=== PATIENT | male | born 1960 | race Caucasian/White ===

== ENCOUNTER 2017-02-10 18:47 | Emergency (ER) | payer OTHER, MEDICAID ==
[2017-02-10 19:00] VITALS: TEMP 97.9
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
[2017-02-10] MEDS ORDERED: OXYCODONE/APAP 5/325MG PREPACK#4 BTL TAKEHOME ONE ×2 (20:04→20:07)
[2017-02-10] MEDS ORDERED: LIDOCAINE 2% VISCOUS 15 ML UDCUP ONE (20:14)
[2017-02-10 21:01] VITALS: O2SAT 96
[2017-02-10 21:02] VITALS: BP 132/91; PULSE 72; RESP 16
== END 2017-02-10 21:06 | disposition home or self-care (01) ==
LOC: EDUNIT#
DX: S42.032A Displaced fracture of lateral end of left clavicle, initial encounter for closed fracture (principal); S70.212A Abrasion, left hip, initial encounter; S80.812A Abrasion, left lower leg, initial encounter; V13.4XXA Pedal cycle driver injured in collision with car, pick-up truck or van in traffic accident, initial encounter; Y92.410 Unspecified street and highway as the place of occurrence of the external cause; Y93.55 Activity, bike riding

== ENCOUNTER 2017-02-13 11:28 | Day surgery (SDC) | payer OTHER, MEDICAID ==
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
--- NOTE | 2017-02-13 07:55 | POSTOPPROG ---
Post Op Note Date of Operation: 02/13/17 Surgeon: Idris Traylor Pre-op Diagnosis: L clavicle fracture Post-op Diagnosis: same Procedure: ORIF L clavicle fracture Inf/Abcess present in the surg proc area at time of surgery?: No EBL: Minimal Complications: none
[2017-02-13] MEDS ORDERED: ceFAZolin 2 GM/DEXTROSE 100 ML IV ONE (11:43)
[2017-02-13 11:57] VITALS: PULSE 66
[2017-02-13] MEDS ORDERED: LR 1,000 ML IV ONE (11:58)
[2017-02-13] MEDS ORDERED: BUPIVACAINE/EPI 0.5% 30 ML SDV ONE (12:06)
[2017-02-13] MEDS ORDERED: MIDAZOLAM 2 MG/2 ML VIAL IVP ONE (12:10)
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
[2017-02-13] MEDS ORDERED: LIDOCAINE 2% 5 ML SDV ONE (12:20)
[2017-02-13] MEDS ORDERED: PROPOFOL 200 MG/20 ML VIAL ONE (12:21)
[2017-02-13] MEDS ORDERED: fentaNYL 100 MCG/2 ML INJ ONE ×2 (12:21→13:01)
[2017-02-13] MEDS ORDERED: HYDROCODONE/APAP 5/325 TAB PO PRN (13:56)
[2017-02-13] MEDS ORDERED: HYDROmorphONE/DILAUDID 1 MG/ML SYR IVP PRN (13:56)
[2017-02-13] MEDS ORDERED: ACETAMINOPHEN 500 MG TAB PO PRN (13:56)
[2017-02-13] MEDS ORDERED: OXYCODONE/APAP 5/325 TAB PO PRN (13:56)
[2017-02-13] MEDS ORDERED: NALOXONE HCL 0.4 MG/ML INJ IVP PRN (13:56)
[2017-02-13] MEDS ORDERED: ONDANSETRON 4 MG/2 ML VIAL IVP PRN (13:56)
[2017-02-13] MEDS ORDERED: fentaNYL 100 MCG/2 ML INJ IVP PRN (13:56)
--- NOTE | 2017-02-13 14:28 | POSTANESTH ---
Post Anesthetic Evaluation Cardiovascular Status: Normal, Stable Respiratory Status: Normal, Stable Level of Consciousness/Mental Status: Can Participate in Eval, Mildly Sleepy, Arousable Pain Control: Adequate, Prn Tx Ordered Nausea/Vomiting Control: Adequate, Prn Tx Ordered Complications Possibly Related to Anesthesia: None Noted
[2017-02-13 14:38] VITALS: TEMP 97.7
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
[2017-02-13 16:36] VITALS: BP 118/85; RESP 7; O2SAT 91
== END 2017-02-13 16:27 | disposition home or self-care (01) ==
LOC: FSGY 11:28
PROVIDERS: ATTEND Orthopaedic Surgery Foot and Ankle Surgery
PROC: 0PSB04Z Reposition Left Clavicle with Internal Fixation Device, Open Approach (ICD-10-PCS; principal; 2017-02-13 13:00)
DX: S42.002A Fracture of unspecified part of left clavicle, initial encounter for closed fracture (principal); V13.4XXA Pedal cycle driver injured in collision with car, pick-up truck or van in traffic accident, initial encounter; Y92.410 Unspecified street and highway as the place of occurrence of the external cause; Y93.55 Activity, bike riding
CPT/HCPCS: C1713; J0690; J2250; J2704; J3010